=== PATIENT | female | born 1990 ===

== ENCOUNTER 2024-02-29 09:09 | Emergency (ER) | payer OTHER, SELFPAY ==
[2024-02-29 09:15] VITALS: BP 131/70
[2024-02-29 09:17] VITALS: BMI 22.3
--- NOTE | 2024-02-29 09:24 | ED.GENMED ---
Addendum entered and electronically signed by Naima Noel PA-C 02/29/24 16:45:
this is just an addendum documenting my pelvic exam on this patient which I was asked to do as a female provider per request of the patient. Patient had admittedly placed several bags of fentanyl in her vagina and consented to this exam. Initially
with the speculum I was unable to visualize the fentanyl backs but on bimanual exam I was able to remove 5 total Dynabac size, plastic white bags with pink paper liner from her vagina. There were no complications or signs of infection, she had no
bleeding or tenderness. I did do another bimanual exam after she consented to a rectal exam which she had denied placing anything in her rectum and I did not feel anything in her rectum. I repeated a pelvic exam bimanually just to be sure there
were no further bags and I had removed all of the foreign bodies. Patient had no complications
Original Note:
History of Present Illness
General
Chief Complaint: Substance Abuse
Source: patient and other (Correctional officers)
Time Seen by Provider: 02/29/24 09:16
Travel History
Have you had any contact with someone who has COVID-19?: No
Do you have any symptoms of coronavirus? Fever > 100 degrees, chills, cough, shortness of breath, sore throat, loss of taste or smell, muscle aches, or headache?: No
History of Present Illness
History of Present Illness:
33-year-old female with past medical history of alcohol abuse and substance abuse presenting emergency department for evaluation at the request of [facility] after she was witnessed having a suspected drug substance on her
person and was suspected of placing this into a body cavity. Patient was sent to the ER for medical clearance as well as to have cavity search. Incidentally, patient was also found to be today. Unsure as to how far along she is in her
. She denies any abdominal pain, nausea, vomiting, vaginal bleeding. Patient drinks alcohol and uses meth/fentanyl daily.
Past History
Past History
ED Past Medical History: Psychiatric
ED Past Surgical History: None
Social History
Tobacco: Smoker
Alcohol: Daily
Drug: Other (Methamphetamine and fentanyl)
Personal: Single
Living: half-way
Review of Systems
Review of Systems
All Other Systems: ROS reviewed and negative except as documented in HPI and ROS
Phy Exam
Physical Exam
Physical Exam:
GENERAL: Alert , in no apparent distress
EYE: conjunctiva clear
Head: Normocephalic atraumatic
NECK: Supple,
ENT: mmm.
LUNGS: no acute respiratory distress
NEUROLOGICAL: Alert and oriented
SKIN: Warm and dry, skin intact.
MUSCULOSKELETAL: well perfused.
PSYCH: Normal and appropriate interaction.
Patient refused rectal/pelvic exam by this PA stating she only wanted a female provider.
Scores
Heart Failure Risk
Heart Failure Risk Score: Not Applicable
Heart Score for Chest Pain Patients
STEMI patient?: Not applicable
Withdrawal Assessment of Alcohol
Withdrawal Assessment Completed?: Not applicable
Course
Vital Signs
Initial and Last Documented VS:
Initial Vital Signs
Temp Pulse Resp BP Pulse Ox
97.9 F 100 18 131/70 100
02/29/24 09:15 02/29/24 09:15 02/29/24 09:15 02/29/24 09:15 02/29/24 09:15
Last Documented Vital Signs
Temp Pulse Resp BP Pulse Ox
97.9 F 99 16 131/70 100
02/29/24 09:15 02/29/24 09:51 02/29/24 09:30 02/29/24 09:15 02/29/24 09:15
MDM/Problems Addressed
MDM/Problems Addressed:
33-year-old female presenting emergency department for evaluation of suspected substance abuse and potentially hiding substance within her rectum or vaginal area. Rectal and pelvic exam was performed by KISHORE Noel. Patient is not exhibiting
any signs of acute alcohol or opioid withdrawal. She is overall medically cleared and stable for incarceration. She can be continuously monitored at the correctional facility for any signs of withdrawal and treatment can be initiated there.
Patient is not also not exhibiting any signs of related complications at this time and can be continuously were at the facility.
Chronic conditions affecting care: Psychiatric illness (Substance abuse)
Acute Exacerbation and/or Progression of Chronic Illness: Psychiatric illness (Substance abuse)
*Pulse Oximetry
Patient hypoxic: no
*Critical Care Note
Total Time (30-74mins, 75-104mins- exclusive of procedures): Not Applicable
Comment
Comment:
Patient refused rectal exam but did consent to pelvic. Following bimanual exam, 5 small bags of suspected fentanyl removed and placed in specimen container. Exam was performed by Mayra Noel PA-C. This was given to security to provide specimen to
police.
Update Note
Update Note:
Prior to leaving, patient did consent for rectal exam to be completed. This was performed by Mayra Noel PA-C and did not yield and foreign body. Patient remains medically stable for d/c back to half-way for further care/treatment as indicated by
their medical staff
ED Attending Note
-
Portions of this chart may have been created with voice recognition software.� Occasional wrong word or��sound alike� substitutions may have occurred due to the inherent limitations of voice recognition software.
Discharge Plan
Departure
Patient Disposition: [facility]
Date of Disposition: 02/29/24
Time of Disposition: 10:07
Patient with high blood pressure during this ER visit?: No
Discharge Problem:
Substance abuse, Medical clearance for incarceration
Referrals:
[facility] [Family Provider] -
Activity Restrictions/Additional Instructions:
Patient is medically cleared for incarceration
Discharge Date and Time
Print Language: DANISH
[2024-02-29 10:00] VITALS: BP 125/77
== END 2024-02-29 11:20 ==
LOC: EMR 09:09
PROVIDERS: EMERGENCY PHYSICIAN Emergency Medicine
DX: Z02.89 Encounter for other administrative examinations (principal); F19.10 Other psychoactive substance abuse, uncomplicated; O99.330 Smoking (tobacco) complicating pregnancy, unspecified trimester; F17.200 Nicotine dependence, unspecified, uncomplicated; Z3A.00 Weeks of gestation of pregnancy not specified
CPT/HCPCS: 99282

== ENCOUNTER 2024-05-15 11:46 | Emergency (ER) | payer OTHER, SELFPAY ==
[2024-05-15 12:00] VITALS: BP 134/75
[2024-05-15 12:14] LABS: % Basophils 0.3 % (0-2); % Immature Granulocytes 0.4 % (0-0.5); % Lymphocytes 11.2 % (20.5-51.1); % Neutrophils 87.1 % (42.2-75.2); Absolute Lymphocytes 1.1 10^3/uL (1.2-3.4); Absolute Monocytes 0.1 10^3/uL (0.1-0.6); Absolute Neutrophils 8.6 10^3/uL (1.4-6.5); Hematocrit 35.3 % (37.0-47.0); Hemoglobin 11.9 g/dL (12.0-16.0); Mean Corp Hgb Conc. 33.7 g/dL (33.0-37.0); Mean Corpuscular Hgb 27.6 pg (27.0-31.0); Mean Corpuscular Volume 81.9 fL (81.0-99.0); Mean Platelet Volume 10.3 fL (7.4-10.4); Nucleated Red Blood Cells % 0 %; Platelet Count 323 10^3/uL (130-400); Red Blood Cell Count 4.31 10^6/uL (4.20-5.40); Red Cell Dist. Width 14.7 % (11.5-14.5); White Blood Cell Count 9.8 10^3/uL (4.8-10.8)
--- NOTE | 2024-05-15 12:25 | ED.GENMED ---
History of Present Illness
General
Chief Complaint: Withdrawal Symptoms
Source: patient
Exam Limitations: none
Time Seen by Provider: 05/15/24 12:16
History of Present Illness
History of Present Illness:
See MDM
Past History
Past History
ED Past Medical History: Psychiatric
ED Past Surgical History: None
Social History
Tobacco: Smoker
Alcohol: Daily
Drug: Other (Methamphetamine and fentanyl)
Personal: Single
Living: assisted
Phy Exam
Physical Exam
Physical Exam:
See MDM
Course
Orders/Labs/Results
Orders:
Orders
05/15/24 11:56
Test Result ONCE
05/15/24 12:02
Complete Blood Count/With Diff Urgent
05/15/24 12:21
0.9% Sodium Chloride 1000 ml [Nss] 1,000 ml IV BOLUS
US 2nd/3rd Trimester Urgent
Reason For Exam: Pt states 2-3 months preg
05/15/24 12:40
Ondansetron Injectable [Zofran] 4 mg .ROUTE .STK-MED ONE
05/15/24 12:44
Ondansetron Injectable [Zofran] 4 mg IV NOW STA
05/15/24 14:19
Comprehensive Metabolic Panel Urgent
HCG, Serum Qualitative Screen Urgent
05/15/24 14:28
Straight cath- Treatment ONCE
05/15/24 14:33
Urinalysis Reflex To Culture Urgent
Date Specimen was Collected: 05/15/24
Time Specimen was Collected: 14:33
Urine Microscopic Reflex Cult Urgent
Abnormal Lab Results
05/15/24 05/15/24 05/15/24
12:02 14:19 14:33
Hgb 11.9 L g/dL
(12.0-16.0)
Hct 35.3 L %
(37.0-47.0)
RDW 14.7 H %
(11.5-14.5)
Absolute Neuts (auto) 8.6 H 10^3/uL
(1.4-6.5)
Absolute Lymphs (auto) 1.1 L 10^3/uL
(1.2-3.4)
Neutrophils % 87.1 H %
(42.2-75.2)
Lymphocytes % 11.2 L %
(20.5-51.1)
Monocytes % 1.0 L %
(1.7-9.3)
Sodium 131 L mmol/L
(135-145)
Potassium 3.3 L mmol/L
(3.5-5.1)
Carbon Dioxide 20 L mmol/L
(22-30)
BUN 6 L mg/dl
(7-17)
Creatinine 0.4 L mg/dL
(0.6-1.0)
Glucose 108 H mg/dl
(70-99)
Calcium 7.9 L mg/dl
(8.4-10.2)
Total Protein 6.2 L g/dl
(6.3-8.2)
Albumin 3.3 L g/dl
(3.5-5.0)
Urine Ketones 3+ A
(Negative)
Ur Occult Blood Reflex Trace A
(Negative)
05/15/24 12:02
05/15/24 14:19
Vital Signs
Initial and Last Documented VS:
Initial Vital Signs
Temp
98.2 F
05/15/24 12:04
Last Documented Vital Signs
Temp
98.2 F
05/15/24 12:04
MDM/Problems Addressed
Differential Diagnosis Includes:
HPI and MDM Narrative:
33-year-old female presenting from [facility] for evaluation of withdrawal. Per the assisted guards, she was treated with Zofran for vomiting. When I entered the room, patient is sleeping. When I woke her up, she states she
is 3 months and has not had any care yet.
Patient states she was using benzodiazepines and opiates.
Physical exam
General: Sleeping
HEENT: protecting airway. Moist mucous membranes
Neck: appears supple
CV: No evidence of cyanosis
Resp: No accessory muscle use
Abd: Non-distended. Soft and nontender
Extremities: No deformities
Neuro: alert
Psych: Normal affect
Skin: Intact
Problems Addressed including Acute and Chronic Conditions affecting care:
1. Withdrawal
Acuity: acute
Prognosis: stable
Details: Symptoms currently improved with Zofran given by the assisted. Will continue to monitor
2.
Acuity: acute
Prognosis: stable
Details: Will obtain ultrasound
Updates
Ultrasound consistent with live IUP measuring 15 weeks and 3 days
On multiple reassessments, patient is sleepy but she is arousable to verbal stimuli. I question whether or not she also did cocaine and patient did admit to recent cocaine use
UA neg
Differential Diagnosis (but not limited to): Drug withdrawal, hyperemesis gravidarum
Testing considered: UDS
Drug therapy (if applicable): OTC meds, please see d/c instruction regarding Rx drugs
Amount and/or Complexity of Data Reviewed
Clinical info obtained from: Patient
External data reviewed: N/A
Labs I independently reviewed (but not limited to): WBC normal
Radiology: N/A
Pulse Ox: not hypoxic
EKG independently reviewed: N/A
Neuropsychology Division Chief: N/A
Critical Care: N/A
Risk of Complication:
Social Determinants of health: Poor social support
Discussed with other providers: N/A
Escalation of Care includes Admit/Obs: After being observed in the Emergency Department, pt stable for discharge back to assisted.
Occasional wrong word or 'sound a like' substitutions may have occurred due to the inherent limitations of voice recognition software. Read the chart carefully and recognize, using context, where substitutions have occurred.
*Critical Care Note
Total Time (30-74mins, 75-104mins- exclusive of procedures): Not Applicable
ED Attending Note
-
Portions of this chart may have been created with voice recognition software.� Occasional wrong word or��sound alike� substitutions may have occurred due to the inherent limitations of voice recognition software.
Discharge Plan
Departure
Patient Disposition: [facility]
Date of Disposition: 05/15/24
Time of Disposition: 14:54
Discharge Problem:
, Drug abuse during
Instructions: Drug Misuse and Addiction (DC)
Prescriptions:
New
doxylamine-pyridoxine (vit B6) [Diclegis] 10-10 mg tablet,delayed release (DR/EC)
1 tab PO DAILY Qty: 30 0RF
Referrals:
[facility]. [facility] [Family Provider] -
Activity Restrictions/Additional Instructions:
The ultrasound shows that you are 15 weeks and 3 days . You must see OB for follow-up and please start the prenatals. Doing drugs will harm the baby.
Return for worsening symptoms
Interventions
Interventions:
*Risk Screen - Suicide Last Done: 05/15/24 11:46
*General Assessment Last Done: 05/15/24 11:46
*Neglect/Abuse Screening Last Done: 05/15/24 11:46
Discharge Date and Time
Print Language: FRISIAN
[2024-05-15] MEDS: NSS 1000 IV (12:55)
[2024-05-15] MEDS: ZOFRAN 4 MG IV (12:55)
[2024-05-15 13:00] VITALS: BP 131/85
[2024-05-15 14:00] VITALS: BP 127/88
[2024-05-15 14:39] LABS: HCG, Serum Qualitative Screen Positive
[2024-05-15 14:41] LABS: Urine Albumin Negative (Neg - Trace); Urine Bilirubin Negative (Negative); Urine Character Very Cloudy (Clear); Urine Color Yellow; Urine Glucose Negative (Negative); Urine Ketone 3+ (Negative); Urine Leukocyte Negative (Negative); Urine Nitrite Negative (Negative); Urine Occult Blood Trace (Negative); Urine Specific Gravity 1.015 (<1.030); Urine Urobilinogen Negative (Neg - 1+)
[2024-05-15 14:41] LABS: ALT (SGPT) 27 U/L (0-35); AST (SGOT) 29 U/L (14-36); Albumin 3.3 g/dl (3.5-5.0); Alkaline Phosphatase 75 U/L (38-126); Blood Urea Nitrogen 6 mg/dl (7-17); Calcium 7.9 mg/dl (8.4-10.2); Carbon Dioxide 20 mmol/L (22-30); Chloride 104 mmol/L (98-107); Glucose 108 mg/dl (70-99); Potassium 3.3 mmol/L (3.5-5.1); Sodium 131 mmol/L (135-145); Total Bilirubin 0.4 mg/dl (0.2-1.3); Total Protein 6.2 g/dl (6.3-8.2); eGFR > 60.00
[2024-05-15 14:52] LABS: Urine Amorphous Seen; Urine Red Blood Cell 0-2 /HPF (0-2); Urine Squamous Cell 0-2 /LPF (Few); Urine White Cell 0-2 /HPF (0-5)
[2024-05-15 15:00] VITALS: BP 124/76
== END 2024-05-15 15:53 ==
LOC: EMR 11:46
PROVIDERS: EMERGENCY PHYSICIAN Student in an Organized Health Care Education/Training Program
DX: O99.322 Drug use complicating pregnancy, second trimester (principal); F19.139 Other psychoactive substance abuse with withdrawal, unspecified; Z3A.15 15 weeks gestation of pregnancy
CPT/HCPCS: 99284; 96374; 96361; 76805; 80053; 81003; 81015; 84703; 85025

== ENCOUNTER → 2024-06-22 10:59 | Outpatient (REF) | payer OTHER, SELFPAY | LOC: PNTC 10:59 | PROVIDERS: ATTENDING PHYSICIAN Obstetrics & Gynecology | DX: O99.323 Drug use complicating pregnancy, third trimester (principal) | CPT/HCPCS: 76811 ==

== ENCOUNTER → 2024-09-06 12:13 | Outpatient (REF) | payer OTHER, SELFPAY | LOC: PNTC 12:13 | PROVIDERS: ATTENDING PHYSICIAN Student in an Organized Health Care Education/Training Program | DX: O98.419 Viral hepatitis complicating pregnancy, unspecified trimester (principal); Z34.90 Encounter for supervision of normal pregnancy, unspecified, unspecified trimester | CPT/HCPCS: 76816 ==